=== PATIENT | female | born 1985 | race Caucasian/White ===

== ENCOUNTER 2022-07-03 07:41 | Inpatient (IN) ==
[2022-07-03] MEDS ORDERED: OXYTOCIN 30 UNITS/500 ML BAG IV PRN ×2 (09:11)
[2022-07-03] MEDS ORDERED: LIDOCAINE 1% LOCAL 20 ML VIAL INFIL PRN (09:11)
--- NOTE | 2022-07-03 09:19 | History & Physical Report ---
Date of Service July 03, 2022 Assessment & Plan (1) Encounter for induction of labor: (2) Supervision of elderly primigravida: Plan admit, iv, labs. start pitocin. arom when regular pattern. fhts categ 1. Admission and Anticipated Discharge Date Admission Date: July 03, 2022 History of Present Illness Chief Complaint: planned postdates induction Primary Care Provider: Sebastian Christy, DO 37yo at 41wks ega presents to L&D for planned induction. Had bah ripening balloon placed last pm, fell out at home. Had some bleeding, did not persist. No ctx. +FM. PNC c/b 1. AMA PNL rh pos, ri, gbs neg OBH: g1 GYNH: nl paps no stds Allergies Allergy/AdvReac Type Severity Reaction Status Date / Time No Known Allergies Allergy Verified 07/02/22 19:17 Home Medications Medication Instructions Recorded Confirmed Type prenat.vits,ivet,oad-snry-tgkez 1 tab PO DAILY 11/15/21 07/03/22 History Patient History Medical History (Updated 07/03/22 @ 09:19 by Gloria Booth MD, FACOG) Fibroids Normal colonoscopy Wears hearing aid b/l hearing aids Surgical History (Updated 07/03/22 @ 08:01 by Barbra Pandey RN) H/O right wrist surgery Bone graft from hip [place] teeth extracted Family History (Updated 07/03/22 @ 08:01 by Barbra Pandey RN) Other No known health problems Social History (Updated 07/03/22 @ 08:02 by Barbra Pandey RN) Smoking Status: Never smoker Hx Alcohol Use: No Hx Substance Use: No Preferred Language: Nepali Communication Ability: Effective 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 Beliefs That Will Affect Care: None marital status: marital status details: Brady (38) [phone] Current Living Situation: Spouse Current Living Situation Comment: lives with spouse dogs, cats, spouse to change litter current occupational status: employed current occupation: [employer] Other Information That Helps Us Care for You: No Feels Safe at Home: Yes Safety Concerns: Feels Safe At This Time Assistive Devices: None Review of Systems as per Subjective / HPI Physical Exam Constitutional: WD/WN, vitals as above Respiratory: normal respiratory effort, lungs clear to auscultation Cardiovascular: Rate/Rhythm: regular rate and regular rhythm Gastrointestinal (Abdomen): soft gravid nt efw 8-9# Musculoskeletal: no edema nontender calves Neurologic: grossly normal Psychiatric: A+Ox3, euthymic affect Genitourinary: Manual OB Exam: + cervical dilation 3 cm, + cervical effacement (long) and + station -2 OB Exam Monitor Tracing: + external FHT monitor used, + external uterine monitor used (irreg), + category I and + normal FHT variability Results & Data ([facility]) Vital Signs (Past 12 Hours) Vital Signs Temp Pulse Resp BP 07/03/22 08:03 99.5 F 18 07/03/22 07:57 92 H 131/64 Coding Level of Care Code None Diagnoses Encounter for induction of labor Z34.90 Supervision of elderly primigravida O09.519
[2022-07-03] MEDS: LACTATED RINGER'S 1,000 ML IV PRN ×4 (09:23→21:03)
[2022-07-03 10:04] LABS: Hematocrit (blood only) 37.9 % (34.1-44.9); Hemoglobin 13.2 g/dl (12.0-16.0); Mean Corpuscular Hgb Conc 34.8 g/dL (32.0-36.0); Mean Corpuscular Volume 94.8 fL (80.0-100.0); Platelet Count 171 K/uL (130-400); RDW Coefficient of Variation 12.2 % (11.5-14.5); RDW Standard Deviation 42.4 fL (36.4-46.3); White Blood Count 7.49 K/ul (4.8-10.8)
--- NOTE | 2022-07-03 15:21 | Labor Progress Brief Note ---
Date of Service July 03, 2022 Subjective not feeling ctx. Assessment & Plan (1) Encounter for induction of labor: (2) Supervision of elderly primigravida: Plan some cx change. will see how arom helps labor pattern. fhts categ 1. Admission and Anticipated Discharge Date Admission Date: July 03, 2022 Physical Exam Constitutional: WD/WN, vitals as above Genitourinary: Manual OB Exam: + cervical dilation 3 cm, + cervical effacement 50%, + station -2 and + amniotic fluid (AROM) clear OB Exam Monitor Tracing: + external FHT monitor used, + external uterine monitor used (q2-3. pit at 7), + category I and + normal FHT variability Results & Data ([facility]) Vital Signs (Past 12 Hours) Vital Signs Temp Pulse Resp BP 07/03/22 08:03 99.5 F 18 07/03/22 15:11 77 146/93 H 07/03/22 13:55 83 139/90 07/03/22 13:54 90 171/97 H 07/03/22 12:47 86 20 145/90 H 07/03/22 11:48 98.2 F 82 20 130/78 07/03/22 11:05 85 20 123/85 07/03/22 10:01 83 20 125/74 07/03/22 09:26 93 H 20 127/82 07/03/22 07:57 92 H 131/64 Coding Level of Care Code None Diagnoses Encounter for induction of labor Z34.90 Supervision of elderly primigravida O09.519
[2022-07-03] MEDS ORDERED: ePHEDrine sulfate 50 MG/ML AMP ONE (15:57)
[2022-07-03] MEDS ORDERED: fentaNYL 2MCG/ML ROPIVACAINE 1.25MG/ML 100 ML BAG EPI ONE (15:58)
[2022-07-03] MEDS ORDERED: BUPIVACAINE 0.25% 30 ML VIAL ONE (15:58)
[2022-07-03] MEDS ORDERED: SODIUM CHLORIDE 0.9% INJ 10 ML VIAL ONE (15:58)
[2022-07-03] MEDS ORDERED: fentaNYL citrate 100 MCG/2 ML VIAL ONE ×2 (15:58→22:26)
[2022-07-03] MEDS ORDERED: LIDOCAINE 2%/EPINEPHRINE 1:200,000 20 ML SDV ONE (15:58)
[2022-07-03] MEDS ORDERED: NALOXONE HCL 0.4 MG/1 ML VIAL/CARP IV PRN (16:07)
[2022-07-03] MEDS ORDERED: ePHEDrine sulfate 50 MG/ML AMP IV PRN (16:07)
[2022-07-03] MEDS ORDERED: NALBUPHINE HCL INJ 10 MG/ML AMP IV PRN (16:07)
[2022-07-03] MEDS ORDERED: diphenhydrAMINE 50 MG/ML VIAL IV PRN (16:07)
[2022-07-03] MEDS ORDERED: NALOXONE HCL 1 MG in SODIUM CHLORIDE 0.9% 1000ML 1,000 ML IV PRN (16:07)
[2022-07-03 16:08] LABS: Albumin Globulin Ratio 1.3 (0.9-2); Albumin Level 3.4 gm/dl (3.4-5.0); BUN Creatinine Ratio 15.7 (10-20); Bilirubin,Total 0.5 mg/dl (0.2-1.0); Calcium 9.4 mg/dl (8.5-10.1); Creatinine Clr Calc Pharmacy 211.6 ml/min; Est GFR (African American) 144.4 ml/min; Est GFR (Non-African American) 124.6 ml/min; Globulin 2.7 gm/dl (2.5-4.0); Potassium 4.1 mmol/L (3.5-5.1); Total Protein 6.1 gm/dl (6.0-8.3)
--- NOTE | 2022-07-03 16:11 | Anesthesiology Consultation ---
Date of Service July 03, 2022 Assessment & Plan ASA ASA2 Proposed Anesthesia Anesthesia Type: General Risk / Benefits Reviewed With: PT / POA / Parent / Guardian, Accepts Plan and Informed Consent Obtained History Height/Weight Height: 5 ft 9 in Weight: 118.388 kg Allergies Allergy/AdvReac Type Severity Reaction Status Date / Time No Known Allergies Allergy Verified 07/02/22 19:17 Medications Home Medications Medication Instructions Recorded Confirmed Last Taken prenat.vits,ivet,ytn-euhf-fdlht 1 tab PO DAILY 11/15/21 07/03/22 07/02/22 Active Medications Generic Name Dose Route Start Last Admin Trade Name Freq PRN Reason Stop Dose Admin Oxytocin 30 units in 500 mls @ 7 mls/hr 07/03/22 09:11 07/03/22 11:05 Pitocin IV 07/05/22 09:10 0.42 units/hr .Q24H PRN 7 mls/hr Labor Induction/Augmentation Titration Protocol 0.42 UNITS/HR Lactated Ringer's 1,000 mls @ 125 mls/hr 07/03/22 09:11 07/03/22 16:53 Lr IV 07/05/22 09:10 999 mls/hr .Q8H PRN Administration L&D Protocol Protocol Past Medical History Medical History Fibroids Normal colonoscopy Wears hearing aid b/l hearing aids Exercise / Class Metabolic Activity II 4-5 Yardwork/Stairs/Walk up hill Past Family History Family History Other No known health problems Past Surgical History Surgical History H/O right wrist surgery Bone graft from hip [place] teeth extracted Past Anesthesia History No Hx of Anesthesia Complications and No Family Hx of Anesthesia Complications History of PONV No Hx of PONV and No Hx of Motion Sickness Social History Smoking Status: Never smoker Hx Alcohol Use: No Hx Substance Use: No Review of Systems denies fever/cough/ colds/ chest pain/ SOB/ ARAMIS denies ARAMIS Physical Exam Vital Signs Last Vital Signs Temp 36.7 C 07/03/22 16:52 Pulse 77 07/03/22 17:14 Resp 20 07/03/22 17:03 BP 134/71 07/03/22 17:14 Pulse Ox 95 07/03/22 17:13 ENMT Mouth: no TMJ abnormality and no dentition abnormality Thyromental Distance: > or= 3.5 Finger Breadths Mallampati Class: II Neck neck extension not limited Respiratory normal respiratory effort; no respiratory distress Auscultation: lungs clear to auscultation bilaterally Cardiovascular Rate/Rhythm: regular rate and regular rhythm Neurologic moves all extremities Psychiatric Orientation: alert and oriented x 3 Testing Laboratory Results 07/03/22 09:52 07/03/22 15:36 Blood Type O Positive 07/03/22 09:52 Antibody Screen NEGATIVE 07/03/22 09:52
--- NOTE | 2022-07-03 19:04 | Labor Progress Brief Note ---
Date of Service July 03, 2022 Subjective pt comfortable with epidural Assessment & Plan (1) Encounter for induction of labor: (2) Supervision of elderly primigravida: Plan c/w pitocin. fhts categ 1 but may need to evaluate more precisely with internal monitors. Admission and Anticipated Discharge Date Admission Date: July 03, 2022 Physical Exam Constitutional: WD/WN, vitals as above Genitourinary: Manual OB Exam: + cervical dilation 3 cm, + cervical effacement 80% and + station -1 OB Exam Monitor Tracing: + external FHT monitor used, + external uterine monitor used (q2-4), + category I (occas early decels vs. variables) and + normal FHT variability Results & Data ([facility]) Vital Signs (Past 12 Hours) Vital Signs Temp Pulse Resp BP Pulse Ox 07/03/22 08:03 99.5 F 18 07/03/22 18:58 80 99 07/03/22 18:55 89 133/75 07/03/22 18:53 108 H 99 07/03/22 18:48 69 98 07/03/22 18:43 64 99 07/03/22 18:39 70 127/59 L 07/03/22 18:38 74 98 07/03/22 18:33 78 99 07/03/22 18:30 18 07/03/22 18:30 97.9 F 18 07/03/22 18:28 93 H 98 07/03/22 18:23 81 100 07/03/22 18:18 83 98 07/03/22 18:13 74 100 07/03/22 18:10 72 120/66 07/03/22 18:08 75 100 07/03/22 18:03 78 100 07/03/22 17:58 71 100 07/03/22 17:53 83 100 07/03/22 17:50 85 129/73 07/03/22 17:48 80 99 07/03/22 17:43 84 100 07/03/22 17:44 68 127/68 07/03/22 17:38 90 100 07/03/22 17:39 88 124/61 07/03/22 17:35 80 134/69 07/03/22 17:33 91 H 100 07/03/22 17:30 88 129/65 07/03/22 17:28 93 H 99 07/03/22 17:25 82 125/67 07/03/22 17:23 79 99 07/03/22 17:19 80 134/66 07/03/22 17:18 74 96 07/03/22 17:13 76 95 07/03/22 17:14 77 134/71 07/03/22 17:08 93 H 99 07/03/22 17:07 94 H 134/69 07/03/22 17:05 97 H 101/55 L 07/03/22 17:03 96 H 20 120/68 98 07/03/22 17:01 88 131/75 07/03/22 16:59 98 H 20 129/76 07/03/22 16:58 105 H 98 07/03/22 16:57 99 H 20 124/73 07/03/22 16:55 104 H 121/69 07/03/22 16:52 20 07/03/22 16:52 98.1 F 20 07/03/22 16:53 93 H 20 122/64 97 07/03/22 16:51 82 18 116/60 07/03/22 16:49 111 H 93 07/03/22 16:50 98 H 122/57 L 07/03/22 16:48 86 95 07/03/22 16:47 69 18 84/47 L 07/03/22 16:45 90 80/44 L 07/03/22 16:43 97 07/03/22 16:43 91 H 07/03/22 16:43 93 H 18 95/52 L 07/03/22 16:41 90 113/58 L 07/03/22 16:38 102 H 98 07/03/22 16:39 95 H 18 126/61 07/03/22 16:37 90 18 127/60 07/03/22 16:36 90 128/60 07/03/22 16:33 96 H 18 145/101 H 98 07/03/22 16:31 95 H 145/98 H 07/03/22 16:28 102 H 98 07/03/22 16:24 115 H 94 07/03/22 16:23 104 H 98 07/03/22 16:19 85 94 07/03/22 16:18 82 98 07/03/22 16:13 119 H 97 07/03/22 16:11 114 H 94 07/03/22 16:08 90 95 07/03/22 16:06 89 92 07/03/22 16:03 84 96 07/03/22 15:58 89 98 07/03/22 15:53 84 100 07/03/22 15:54 83 18 146/91 H 07/03/22 15:11 77 146/93 H 07/03/22 13:55 83 139/90 07/03/22 13:54 90 171/97 H 07/03/22 12:47 86 20 145/90 H 07/03/22 11:48 98.2 F 82 20 130/78 07/03/22 11:05 85 20 123/85 07/03/22 10:01 83 20 125/74 07/03/22 09:26 93 H 20 127/82 07/03/22 07:57 92 H 131/64 Coding Level of Care Code None Diagnoses Encounter for induction of labor Z34.90 Supervision of elderly primigravida O09.519
--- NOTE | 2022-07-03 19:27 | Labor Progress Brief Note ---
Date of Service July 03, 2022 Subjective coming out to evaluate pt due to decels and nurse notes that about 15min prior bright red blood and fluid. pt comfortable. Assessment & Plan (1) Encounter for induction of labor: (2) Supervision of elderly primigravida: Plan some cx change but fhts concerning for ? lates, iupc and fse placed, pit at 9, i am more concerned about the bright red bleeding as well and concern for abruption. reviewed all with patient and partner. addendum: pit off due to late decels. will allow in utero resuscitation with position change, bolus and monitor bleeding to reevaluate. Admission and Anticipated Discharge Date Admission Date: July 03, 2022 Physical Exam Constitutional: WD/WN, vitals as above Genitourinary: Manual OB Exam: + cervical dilation 4 cm, + cervical effacement 80% and + station -1 OB Exam Monitor Tracing: + external FHT monitor used, + external uterine monitor used (q2-4 pit at 9 ), + category II, + category III and + normal FHT variability (+scalp stim response) bright red blood and clot on chux under bottom and trickling of blood. ?150cc Results & Data ([facility]) Vital Signs (Past 12 Hours) Vital Signs Temp Pulse Resp BP Pulse Ox 07/03/22 08:03 99.5 F 18 07/03/22 19:18 108 H 100 07/03/22 19:13 111 H 98 07/03/22 19:08 95 H 100 07/03/22 19:09 103 H 131/84 07/03/22 19:03 76 100 07/03/22 18:58 80 99 07/03/22 18:55 89 133/75 07/03/22 18:53 108 H 99 07/03/22 18:48 69 98 07/03/22 18:43 64 99 07/03/22 18:39 70 127/59 L 07/03/22 18:38 74 98 07/03/22 18:33 78 99 07/03/22 18:30 18 07/03/22 18:30 97.9 F 18 07/03/22 18:28 93 H 98 07/03/22 18:23 81 100 07/03/22 18:18 83 98 07/03/22 18:13 74 100 07/03/22 18:10 72 120/66 07/03/22 18:08 75 100 07/03/22 18:03 78 100 07/03/22 17:58 71 100 07/03/22 17:53 83 100 07/03/22 17:50 85 129/73 07/03/22 17:48 80 99 07/03/22 17:43 84 100 07/03/22 17:44 68 127/68 07/03/22 17:38 90 100 07/03/22 17:39 88 124/61 07/03/22 17:35 80 134/69 07/03/22 17:33 91 H 100 07/03/22 17:30 88 129/65 07/03/22 17:28 93 H 99 07/03/22 17:25 82 125/67 07/03/22 17:23 79 99 07/03/22 17:19 80 134/66 07/03/22 17:18 74 96 07/03/22 17:13 76 95 07/03/22 17:14 77 134/71 07/03/22 17:08 93 H 99 07/03/22 17:07 94 H 134/69 07/03/22 17:05 97 H 101/55 L 07/03/22 17:03 96 H 20 120/68 98 07/03/22 17:01 88 131/75 07/03/22 16:59 98 H 20 129/76 07/03/22 16:58 105 H 98 07/03/22 16:57 99 H 20 124/73 07/03/22 16:55 104 H 121/69 07/03/22 16:52 20 07/03/22 16:52 98.1 F 20 07/03/22 16:53 93 H 20 122/64 97 07/03/22 16:51 82 18 116/60 07/03/22 16:49 111 H 93 07/03/22 16:50 98 H 122/57 L 07/03/22 16:48 86 95 07/03/22 16:47 69 18 84/47 L 07/03/22 16:45 90 80/44 L 07/03/22 16:43 97 07/03/22 16:43 91 H 07/03/22 16:43 93 H 18 95/52 L 07/03/22 16:41 90 113/58 L 07/03/22 16:38 102 H 98 07/03/22 16:39 95 H 18 126/61 07/03/22 16:37 90 18 127/60 07/03/22 16:36 90 128/60 07/03/22 16:33 96 H 18 145/101 H 98 07/03/22 16:31 95 H 145/98 H 07/03/22 16:28 102 H 98 07/03/22 16:24 115 H 94 07/03/22 16:23 104 H 98 07/03/22 16:19 85 94 07/03/22 16:18 82 98 07/03/22 16:13 119 H 97 07/03/22 16:11 114 H 94 07/03/22 16:08 90 95 07/03/22 16:06 89 92 07/03/22 16:03 84 96 07/03/22 15:58 89 98 07/03/22 15:53 84 100 07/03/22 15:54 83 18 146/91 H 07/03/22 15:11 77 146/93 H 07/03/22 13:55 83 139/90 07/03/22 13:54 90 171/97 H 07/03/22 12:47 86 20 145/90 H 07/03/22 11:48 98.2 F 82 20 130/78 07/03/22 11:05 85 20 123/85 07/03/22 10:01 83 20 125/74 07/03/22 09:26 93 H 20 127/82 07/03/22 07:57 92 H 131/64 Coding Level of Care Code None Diagnoses Encounter for induction of labor Z34.90 Supervision of elderly primigravida O09.519
--- NOTE | 2022-07-03 20:54 | Communication Note ---
Date of Service: July 03, 2022 strip review. fhts categ 1, pit infusing at 3 no further bleeding. cont current care.
--- NOTE | 2022-07-03 22:35 | Communication Note ---
Date of Service: July 03, 2022 pt c/o pain on right side towards back. I pulled the catheter back 1 cm. bolused 100 mcg fentanyl, 3cc 2% lidocaine with epi, 3 cc 0.5% ropivicaine. pt feels better
[2022-07-03] MEDS: fentaNYL 2MCG/ML ROPIVACAINE 1.25MG/ML 100 ML BAG EPI PRN (23:15)
[2022-07-03] MEDS ORDERED: NURSING L&D Epidural Breakthrough Pain Update ONE (23:21)
[2022-07-04] MEDS: LACTATED RINGER'S 1,000 ML IV PRN ×3 (01:03→10:10)
[2022-07-04] MEDS ORDERED: fentaNYL citrate 100 MCG/2 ML VIAL ONE (03:00)
--- NOTE | 2022-07-04 03:12 | Communication Note ---
Date of Service: July 04, 2022 pt again c/o pain on right side/back. left side is numb. Bolus 100 mcg fentanyl, 3 cc 0.5% ropivicaine and 2 cc lidocaine. pain improved.
[2022-07-04] MEDS: fentaNYL 2MCG/ML ROPIVACAINE 1.25MG/ML 100 ML BAG EPI PRN ×2 (05:04→10:06)
--- NOTE | 2022-07-04 07:39 | Labor Progress Brief Note ---
Date of Service July 04, 2022 Subjective pt seen at about 530 am this is late entry. sitting upright and sleeping. no pain issues but recent rebolus. fhts with late decels and so pit off, communicating with nursing. Assessment & Plan (1) Encounter for induction of labor: (2) Supervision of elderly primigravida: Plan discussed with patient now that fhts improved, can opt to restart pitocin. even when having on and off adeq mvus, still making cx change however station still - 1. this will be 3rd time we have restarted pit and her epidural has required now 2 re-doses (she says does not seem to work well on right side). she is comfortable restarting pitocin. fhts categ 1. will start at 1/2 of past dose and increase more incrementally. pt aware of plan and that Dr. Edwards taking over later this am. Admission and Anticipated Discharge Date Admission Date: July 03, 2022 Physical Exam Constitutional: WD/WN, vitals as above Genitourinary: Manual OB Exam: + cervical dilation 7 cm, + cervical effacement 90% and + station -1 OB Exam Monitor Tracing: + external FHT monitor used, + intra-uterine pressure catheter used (q6min, mvu inadeq, pit off), + category I and + normal FHT variability fhts now categ 1. Results & Data ([facility]) Vital Signs (Past 12 Hours) Vital Signs Temp Pulse Resp BP Pulse Ox 07/04/22 07:32 92 H 96 07/04/22 07:26 102 H 150/65 H 07/04/22 07:23 85 97 07/04/22 07:18 102 H 97 07/04/22 07:15 78 153/73 H 07/04/22 07:10 18 07/04/22 07:10 98.1 F 18 07/04/22 07:13 99 H 95 07/04/22 07:11 93 07/04/22 07:11 80 07/04/22 07:11 86 186/103 H 07/04/22 07:08 87 95 07/04/22 07:04 71 91 07/04/22 07:03 92 H 98 07/04/22 06:58 105 H 97 07/04/22 06:57 78 159/98 H 07/04/22 06:53 83 92 07/04/22 06:48 116 H 97 07/04/22 06:47 91 H 94 07/04/22 06:43 95 H 97 07/04/22 06:42 80 183/93 H 07/04/22 06:38 99 H 97 07/04/22 06:39 86 94 07/04/22 06:33 97 H 97 07/04/22 06:34 92 H 92 07/04/22 06:28 83 95 07/04/22 06:27 94 07/04/22 06:27 87 07/04/22 06:27 80 145/89 H 07/04/22 06:23 96 H 96 07/04/22 06:22 115 H 92 07/04/22 06:17 18 07/04/22 06:17 18 07/04/22 06:18 83 95 07/04/22 06:16 89 91 07/04/22 06:13 100 H 96 07/04/22 06:11 96 H 159/96 H 07/04/22 06:08 94 H 96 07/04/22 06:03 92 H 95 07/04/22 05:58 80 96 07/04/22 05:55 81 153/76 H 07/04/22 05:53 85 97 07/04/22 05:48 88 95 07/04/22 05:43 87 96 07/04/22 05:41 86 159/84 H 07/04/22 05:38 92 H 96 07/04/22 05:31 18 07/04/22 05:31 97.9 F 18 07/04/22 05:33 85 96 07/04/22 05:28 104 H 98 07/04/22 05:26 100 H 162/90 H 07/04/22 05:23 123 H 99 07/04/22 05:18 81 94 07/04/22 05:17 82 94 07/04/22 05:13 77 96 07/04/22 05:12 83 94 07/04/22 05:10 86 147/89 H 07/04/22 05:08 78 96 07/04/22 05:03 80 96 07/04/22 04:58 76 96 07/04/22 04:57 82 159/91 H 07/04/22 04:53 79 96 07/04/22 04:52 82 94 07/04/22 04:48 87 95 07/04/22 04:43 81 95 07/04/22 04:42 85 138/79 07/04/22 04:38 78 95 07/04/22 04:33 97 H 94 07/04/22 04:28 77 96 07/04/22 04:27 83 159/75 H 07/04/22 04:23 91 H 96 07/04/22 04:18 90 97 07/04/22 04:13 85 146/77 H 97 07/04/22 04:12 101 H 154/105 H 07/04/22 04:08 102 H 98 07/04/22 04:03 85 95 07/04/22 03:58 111 H 97 07/04/22 03:56 114 H 198/104 H 07/04/22 03:53 104 H 97 07/04/22 03:48 82 95 07/04/22 03:43 85 96 07/04/22 03:41 95 H 134/88 07/04/22 03:38 110 H 97 07/04/22 03:37 104 H 94 07/04/22 03:33 92 H 95 07/04/22 03:28 98 H 95 07/04/22 03:26 84 136/77 94 07/04/22 03:23 89 95 07/04/22 03:22 79 156/73 H 07/04/22 03:18 91 H 94 07/04/22 03:19 101 H 94 07/04/22 03:10 20 07/04/22 03:10 98.8 F 20 07/04/22 03:13 90 96 07/04/22 03:11 104 H 182/87 H 07/04/22 03:08 101 H 96 07/04/22 03:03 100 H 96 07/04/22 02:58 90 07/04/22 02:58 94 H 07/04/22 02:58 84 92 07/04/22 02:55 96 H 171/83 H 07/04/22 02:53 102 H 95 07/04/22 02:51 80 90 07/04/22 02:48 104 H 98 07/04/22 02:43 98 H 95 07/04/22 02:42 89 07/04/22 02:42 87 179/89 H 90 07/04/22 02:38 100 H 98 07/04/22 02:34 89 91 07/04/22 02:33 93 H 96 07/04/22 02:28 97 H 95 07/04/22 02:29 84 92 07/04/22 02:26 83 185/87 H 07/04/22 02:24 85 93 07/04/22 02:23 18 07/04/22 02:23 98.8 F 93 H 18 96 07/04/22 02:18 94 H 97 07/04/22 02:19 89 92 07/04/22 02:13 97 H 95 07/04/22 02:10 93 H 146/87 H 07/04/22 02:08 102 H 97 07/04/22 02:07 91 H 92 07/04/22 02:03 89 96 07/04/22 02:01 86 93 07/04/22 01:58 92 H 94 07/04/22 01:55 91 H 152/86 H 94 07/04/22 01:53 99 H 96 07/04/22 01:48 86 95 07/04/22 01:43 90 96 07/04/22 01:40 96 H 150/90 H 07/04/22 01:38 109 H 97 07/04/22 01:33 92 H 96 07/04/22 01:28 89 97 07/04/22 01:27 83 130/69 07/04/22 01:23 95 H 97 07/04/22 01:18 87 97 07/04/22 01:15 82 94 07/04/22 01:13 84 96 07/04/22 01:10 83 127/72 07/04/22 01:08 83 96 07/04/22 01:03 88 96 07/04/22 00:58 78 97 07/04/22 00:57 86 132/78 07/04/22 00:53 88 97 07/04/22 00:48 83 96 07/04/22 00:43 96 H 97 07/04/22 00:40 93 H 131/78 07/04/22 00:38 102 H 98 07/04/22 00:33 89 97 07/04/22 00:28 99.9 F H 96 H 18 98 07/04/22 00:23 107 H 96 07/04/22 00:18 91 H 97 07/04/22 00:13 85 96 07/04/22 00:10 91 H 126/65 07/04/22 00:08 86 95 07/04/22 00:03 87 96 07/03/22 23:58 87 96 07/03/22 23:55 86 116/63 07/03/22 23:53 85 98 07/03/22 23:48 88 96 07/03/22 23:46 91 H 94 07/03/22 23:43 99 H 98 07/03/22 23:40 84 125/69 07/03/22 23:38 86 95 07/03/22 23:37 83 94 07/03/22 23:33 90 95 07/03/22 23:30 81 94 07/03/22 23:28 85 94 07/03/22 23:25 88 128/73 07/03/22 23:23 94 07/03/22 23:23 90 07/03/22 23:23 85 94 07/03/22 23:18 91 H 96 07/03/22 23:17 85 94 07/03/22 23:13 84 95 07/03/22 23:10 86 93 07/03/22 23:09 94 H 128/75 07/03/22 23:08 106 H 98 07/03/22 23:07 93 H 128/70 07/03/22 23:05 93 H 121/69 07/03/22 23:04 85 94 07/03/22 23:03 80 129/72 95 07/03/22 23:01 85 128/70 07/03/22 23:00 90 119/67 07/03/22 22:58 96 07/03/22 22:58 93 H 07/03/22 22:58 90 113/59 L 07/03/22 22:55 83 131/65 07/03/22 22:53 94 H 95 07/03/22 22:54 93 H 124/62 07/03/22 22:52 99 H 93 07/03/22 22:51 111 H 131/79 07/03/22 22:49 111 H 130/69 07/03/22 22:48 99 H 94 07/03/22 22:47 94 H 127/68 07/03/22 22:46 96 H 93 07/03/22 22:45 90 132/72 07/03/22 22:43 100 H 136/74 96 07/03/22 22:41 93 H 136/73 07/03/22 22:39 98 H 140/78 07/03/22 22:38 98 H 96 07/03/22 22:37 92 H 07/03/22 22:37 90 134/75 92 07/03/22 22:35 90 124/71 07/03/22 22:33 88 97 07/03/22 22:34 85 127/73 07/03/22 22:32 113 H 94 07/03/22 22:31 99 H 131/85 07/03/22 22:28 93 H 95 07/03/22 22:26 90 93 07/03/22 22:23 90 97 07/03/22 22:24 82 141/90 H 07/03/22 22:21 91 H 92 07/03/22 22:18 102 H 96 07/03/22 22:15 91 H 94 07/03/22 22:13 94 H 97 07/03/22 22:11 20 07/03/22 22:11 98.8 F 20 07/03/22 22:09 95 H 145/92 H 07/03/22 22:08 99 H 96 07/03/22 22:04 86 91 07/03/22 22:03 98 H 98 07/03/22 21:58 96 07/03/22 21:58 94 H 07/03/22 21:58 88 93 07/03/22 21:53 89 96 07/03/22 21:54 92 H 139/86 07/03/22 21:52 95 H 94 07/03/22 21:48 105 H 99 07/03/22 21:29 18 07/03/22 21:29 97.9 F 18 07/03/22 21:43 96 H 97 07/03/22 21:39 93 H 131/78 07/03/22 21:38 91 H 97 07/03/22 21:33 100 H 97 07/03/22 21:28 85 97 07/03/22 21:25 86 131/78 07/03/22 21:23 95 H 98 07/03/22 21:18 96 H 98 07/03/22 21:00 18 07/03/22 21:00 18 07/03/22 21:13 97 H 99 07/03/22 21:10 83 133/75 07/03/22 21:08 88 97 07/03/22 21:03 98 H 98 07/03/22 20:58 88 96 07/03/22 20:53 90 97 07/03/22 20:54 90 129/73 07/03/22 20:48 79 97 07/03/22 20:43 85 96 07/03/22 20:42 92 H 93 07/03/22 20:38 90 96 07/03/22 20:39 90 127/72 07/03/22 20:33 82 96 07/03/22 20:28 84 96 07/03/22 20:23 85 97 07/03/22 20:24 80 122/68 07/03/22 20:18 82 97 07/03/22 20:13 94 H 98 07/03/22 20:08 87 99 07/03/22 20:09 82 121/65 07/03/22 20:03 88 96 07/03/22 19:40 98.4 F 07/03/22 19:58 96 H 99 07/03/22 19:53 87 95 07/03/22 19:54 74 135/68 07/03/22 19:48 81 96 07/03/22 19:43 79 98 07/03/22 19:38 85 99 07/03/22 19:39 80 127/74 Coding Level of Care Code None Diagnoses Encounter for induction of labor Z34.90 Supervision of elderly primigravida O09.519
--- NOTE | 2022-07-04 09:04 | Labor Progress Brief Note ---
Date of Service July 04, 2022 Subjective Met with patient in room 424 after receiving detailed signout from Dr. Booth. 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 I removed the remaining parts of the prior FSE and placed a new one which was then activated. I noted significant labial and perineal edema, bloody show, and my cervix exam is currently 6/100/-2 with the very leading edge of the cervix being 100% eff aced however the remainder of the palpable cervical ring quite puffy just behind that sharp edge. This may account for the RN's exam a short time ago during which she believed the exam was 8cm. Discussed the course of labor so far with Nanci and her . They're having a boy, either Joe or Higinio, not sure yet on the name. She was of course hoping for vaginal delivery but wants a healthy delivery above all. We discussed that while there has been progress, and no emergency that has required a change of plans, as time goes on the risks of complications like infection and hemorrhage also increase - so there are diminishing rewards to allowing very slow labor, after a point. We talked about the positive signs: dilation, reassuring heart tones when contractions are not close together, and patient's energy and motivation still good. We talked about less-positive signs: no descent of the presenting part, significant edema of labia and also cervix, and poor tolerance of augmentation of labor. While it's not possible to know exactly how the process will end, she currently has some of the best pain relief she's had so far; thus I recommended we go ahead and try to use pitocin now to move this baby downward, and try to demonstrate either some significant forward progress towards a vaginal delivery, or test the baby's ability to tolerate the necessary labor forces in the process, so that we can proceed to a if that's ultimately what will be needed. She and the FOB had an opportunity to ask questions, voice concerns, and discuss the plan. They are in agreement with using pitocin in the usual up-by-two pattern, and close monitoring using FSE. Assessment & Plan (1) Encounter for induction of labor: Plan: As above will continue to induce and look for progress towards , but pt aware there are concerns that we may need to change route of depending on findings in the next few hours. Admission and Anticipated Discharge Date Admission Date: July 03, 2022 Physical Exam Genitourinary: FHT Cat 1 [place] Q4-6m Cvx 6/100/-2 as above, with a very thin inner rim and edema of outer portion of cervical ring, mimicking an 8cm exam if you don't feel the thin inner portion of the cervix. LOF clear with bloody show. Results & Data ([facility]) Vital Signs (Past 12 Hours) Vital Signs Temp Pulse Resp BP Pulse Ox 07/04/22 08:47 73 96 07/04/22 08:42 79 96 07/04/22 08:41 75 134/69 07/04/22 08:39 84 94 07/04/22 08:37 78 96 07/04/22 08:32 87 97 07/04/22 08:27 104 H 99 07/04/22 08:26 96 H 138/78 07/04/22 08:22 96 H 96 07/04/22 08:17 85 97 07/04/22 08:12 85 96 07/04/22 08:11 90 145/74 H 07/04/22 08:09 93 H 94 07/04/22 08:07 78 96 07/04/22 08:02 96 07/04/22 08:02 75 07/04/22 08:02 78 94 07/04/22 07:57 81 97 07/04/22 07:56 75 134/63 07/04/22 07:52 81 96 07/04/22 07:50 78 94 07/04/22 07:47 78 96 07/04/22 07:42 77 95 07/04/22 07:40 77 133/65 07/04/22 07:37 90 97 07/04/22 07:32 92 H 96 07/04/22 07:26 102 H 150/65 H 07/04/22 07:23 85 97 07/04/22 07:18 102 H 97 07/04/22 07:15 78 153/73 H 07/04/22 07:10 18 07/04/22 07:10 98.1 F 18 07/04/22 07:13 99 H 95 07/04/22 07:11 93 07/04/22 07:11 80 07/04/22 07:11 86 186/103 H 07/04/22 07:08 87 95 07/04/22 07:04 71 91 07/04/22 07:03 92 H 98 07/04/22 06:58 105 H 97 07/04/22 06:57 78 159/98 H 07/04/22 06:53 83 92 07/04/22 06:48 116 H 97 07/04/22 06:47 91 H 94 07/04/22 06:43 95 H 97 07/04/22 06:42 80 183/93 H 07/04/22 06:38 99 H 97 07/04/22 06:39 86 94 07/04/22 06:33 97 H 97 07/04/22 06:34 92 H 92 07/04/22 06:28 83 95 07/04/22 06:27 94 07/04/22 06:27 87 07/04/22 06:27 80 145/89 H 07/04/22 06:23 96 H 96 07/04/22 06:22 115 H 92 07/04/22 06:17 18 07/04/22 06:17 18 07/04/22 06:18 83 95 07/04/22 06:16 89 91 07/04/22 06:13 100 H 96 07/04/22 06:11 96 H 159/96 H 07/04/22 06:08 94 H 96 07/04/22 06:03 92 H 95 07/04/22 05:58 80 96 07/04/22 05:55 81 153/76 H 07/04/22 05:53 85 97 07/04/22 05:48 88 95 07/04/22 05:43 87 96 07/04/22 05:41 86 159/84 H 07/04/22 05:38 92 H 96 07/04/22 05:31 18 07/04/22 05:31 97.9 F 18 07/04/22 05:33 85 96 07/04/22 05:28 104 H 98 07/04/22 05:26 100 H 162/90 H 07/04/22 05:23 123 H 99 07/04/22 05:18 81 94 07/04/22 05:17 82 94 07/04/22 05:13 77 96 07/04/22 05:12 83 94 07/04/22 05:10 86 147/89 H 07/04/22 05:08 78 96 07/04/22 05:03 80 96 07/04/22 04:58 76 96 07/04/22 04:57 82 159/91 H 07/04/22 04:53 79 96 07/04/22 04:52 82 94 07/04/22 04:48 87 95 07/04/22 04:43 81 95 07/04/22 04:42 85 138/79 07/04/22 04:38 78 95 07/04/22 04:33 97 H 94 07/04/22 04:28 77 96 07/04/22 04:27 83 159/75 H 07/04/22 04:23 91 H 96 07/04/22 04:18 90 97 07/04/22 04:13 85 146/77 H 97 07/04/22 04:12 101 H 154/105 H 07/04/22 04:08 102 H 98 07/04/22 04:03 85 95 07/04/22 03:58 111 H 97 07/04/22 03:56 114 H 198/104 H 07/04/22 03:53 104 H 97 07/04/22 03:48 82 95 07/04/22 03:43 85 96 07/04/22 03:41 95 H 134/88 07/04/22 03:38 110 H 97 07/04/22 03:37 104 H 94 07/04/22 03:33 92 H 95 07/04/22 03:28 98 H 95 07/04/22 03:26 84 136/77 94 07/04/22 03:23 89 95 07/04/22 03:22 79 156/73 H 07/04/22 03:18 91 H 94 07/04/22 03:19 101 H 94 07/04/22 03:10 20 07/04/22 03:10 98.8 F 20 07/04/22 03:13 90 96 07/04/22 03:11 104 H 182/87 H 07/04/22 03:08 101 H 96 07/04/22 03:03 100 H 96 07/04/22 02:58 90 07/04/22 02:58 94 H 07/04/22 02:58 84 92 07/04/22 02:55 96 H 171/83 H 07/04/22 02:53 102 H 95 07/04/22 02:51 80 90 07/04/22 02:48 104 H 98 07/04/22 02:43 98 H 95 07/04/22 02:42 89 07/04/22 02:42 87 179/89 H 90 07/04/22 02:38 100 H 98 07/04/22 02:34 89 91 07/04/22 02:33 93 H 96 07/04/22 02:28 97 H 95 07/04/22 02:29 84 92 07/04/22 02:26 83 185/87 H 07/04/22 02:24 85 93 07/04/22 02:23 18 07/04/22 02:23 98.8 F 93 H 18 96 07/04/22 02:18 94 H 97 07/04/22 02:19 89 92 07/04/22 02:13 97 H 95 07/04/22 02:10 93 H 146/87 H 07/04/22 02:08 102 H 97 07/04/22 02:07 91 H 92 07/04/22 02:03 89 96 07/04/22 02:01 86 93 07/04/22 01:58 92 H 94 07/04/22 01:55 91 H 152/86 H 94 07/04/22 01:53 99 H 96 07/04/22 01:48 86 95 07/04/22 01:43 90 96 07/04/22 01:40 96 H 150/90 H 07/04/22 01:38 109 H 97 07/04/22 01:33 92 H 96 07/04/22 01:28 89 97 07/04/22 01:27 83 130/69 07/04/22 01:23 95 H 97 07/04/22 01:18 87 97 07/04/22 01:15 82 94 07/04/22 01:13 84 96 07/04/22 01:10 83 127/72 07/04/22 01:08 83 96 07/04/22 01:03 88 96 07/04/22 00:58 78 97 07/04/22 00:57 86 132/78 07/04/22 00:53 88 97 07/04/22 00:48 83 96 07/04/22 00:43 96 H 97 07/04/22 00:40 93 H 131/78 07/04/22 00:38 102 H 98 07/04/22 00:33 89 97 07/04/22 00:28 99.9 F H 96 H 18 98 07/04/22 00:23 107 H 96 07/04/22 00:18 91 H 97 07/04/22 00:13 85 96 07/04/22 00:10 91 H 126/65 07/04/22 00:08 86 95 07/04/22 00:03 87 96 07/03/22 23:58 87 96 07/03/22 23:55 86 116/63 07/03/22 23:53 85 98 07/03/22 23:48 88 96 07/03/22 23:46 91 H 94 07/03/22 23:43 99 H 98 07/03/22 23:40 84 125/69 07/03/22 23:38 86 95 07/03/22 23:37 83 94 07/03/22 23:33 90 95 07/03/22 23:30 81 94 07/03/22 23:28 85 94 07/03/22 23:25 88 128/73 07/03/22 23:23 94 07/03/22 23:23 90 07/03/22 23:23 85 94 07/03/22 23:18 91 H 96 07/03/22 23:17 85 94 07/03/22 23:13 84 95 07/03/22 23:10 86 93 07/03/22 23:09 94 H 128/75 07/03/22 23:08 106 H 98 07/03/22 23:07 93 H 128/70 07/03/22 23:05 93 H 121/69 07/03/22 23:04 85 94 07/03/22 23:03 80 129/72 95 07/03/22 23:01 85 128/70 07/03/22 23:00 90 119/67 07/03/22 22:58 96 07/03/22 22:58 93 H 07/03/22 22:58 90 113/59 L 07/03/22 22:55 83 131/65 07/03/22 22:53 94 H 95 07/03/22 22:54 93 H 124/62 07/03/22 22:52 99 H 93 07/03/22 22:51 111 H 131/79 07/03/22 22:49 111 H 130/69 07/03/22 22:48 99 H 94 07/03/22 22:47 94 H 127/68 07/03/22 22:46 96 H 93 07/03/22 22:45 90 132/72 07/03/22 22:43 100 H 136/74 96 07/03/22 22:41 93 H 136/73 07/03/22 22:39 98 H 140/78 07/03/22 22:38 98 H 96 07/03/22 22:37 92 H 07/03/22 22:37 90 134/75 92 07/03/22 22:35 90 124/71 07/03/22 22:33 88 97 07/03/22 22:34 85 127/73 07/03/22 22:32 113 H 94 07/03/22 22:31 99 H 131/85 07/03/22 22:28 93 H 95 07/03/22 22:26 90 93 07/03/22 22:23 90 97 07/03/22 22:24 82 141/90 H 07/03/22 22:21 91 H 92 07/03/22 22:18 102 H 96 07/03/22 22:15 91 H 94 07/03/22 22:13 94 H 97 07/03/22 22:11 20 07/03/22 22:11 98.8 F 20 07/03/22 22:09 95 H 145/92 H 07/03/22 22:08 99 H 96 07/03/22 22:04 86 91 07/03/22 22:03 98 H 98 07/03/22 21:58 96 07/03/22 21:58 94 H 07/03/22 21:58 88 93 07/03/22 21:53 89 96 07/03/22 21:54 92 H 139/86 07/03/22 21:52 95 H 94 07/03/22 21:48 105 H 99 07/03/22 21:29 18 07/03/22 21:29 97.9 F 18 07/03/22 21:43 96 H 97 07/03/22 21:39 93 H 131/78 07/03/22 21:38 91 H 97 07/03/22 21:33 100 H 97 07/03/22 21:28 85 97 07/03/22 21:25 86 131/78 07/03/22 21:23 95 H 98 07/03/22 21:18 96 H 98 07/03/22 21:00 18 07/03/22 21:00 18 07/03/22 21:13 97 H 99 07/03/22 21:10 83 133/75 07/03/22 21:08 88 97 07/03/22 21:03 98 H 98 07/03/22 20:58 88 96 07/03/22 20:53 90 97 07/03/22 20:54 90 129/73 Coding Level of Care Code None Diagnoses Encounter for induction of labor Z34.90
[2022-07-04] MEDS ORDERED: MoRPHine SULFATE PF 1 MG/ML 10 ML AMP/VIAL ONE (10:38)
--- NOTE | 2022-07-04 10:42 | Labor Progress Brief Note ---
Date of Service July 04, 2022 Subjective Patient received yet another epidural bolus at 10am, and the FHT which had been Cat 1 until then began to show deep late decels. I came to the room to find her very comfortable, pit @ 18, contractions Q3min. Exam showed no change at all: 6/100/-2, with a visible increase in vulvar and perineal edema which ELIZABETH Denise also commented on noticing. Assessment & Plan (1) Failure to progress in labor: Plan: Discussed with patient and FOB that at this point there has been no interval cervical change despite significant increases in pitocin and a very nice labor pattern in her contractions. The increased labial edema suggests CPD. Meanwhile the fetus shows inability to tolerate the regional hypotension that occurs with each epidural bolus dose, which the patient is requiring with some frequency to achieve adequate comfort. While we can continue to try to achieve at least 6 hours of adequate MVU, I think she's had two good hours of MVU without any change, and there has continued to be evidence that maternal comfort and perfusion are at odds. She is feeling tired, and is agreeable to moving forward with at this point to achieve a healthy delivery without further delay. Given length of labor, maternal habitus, and a busy census on the unit at this time, will call an assisting MD from the office to help with the surgery. Patient is aware. Admission and Anticipated Discharge Date Admission Date: July 03, 2022 Results & Data ([facility]) Vital Signs (Past 12 Hours) Vital Signs Temp Pulse Resp BP Pulse Ox 07/04/22 10:32 101 H 98 07/04/22 10:27 94 H 97 07/04/22 10:25 95 H 134/75 07/04/22 10:22 76 95 07/04/22 10:17 76 97 07/04/22 10:12 81 95 07/04/22 10:11 81 135/73 07/04/22 10:07 86 95 07/04/22 10:04 86 146/72 H 07/04/22 10:02 86 94 07/04/22 10:01 87 93 07/04/22 09:57 106 H 98 07/04/22 09:58 94 H 156/100 H 07/04/22 09:56 84 144/94 H 92 07/04/22 09:52 91 H 97 07/04/22 09:50 87 92 07/04/22 09:47 86 95 07/04/22 09:44 83 93 07/04/22 09:42 97 07/04/22 09:42 92 H 07/04/22 09:42 88 171/97 H 07/04/22 09:37 96 H 97 07/04/22 09:32 94 H 98 07/04/22 09:30 82 92 07/04/22 09:27 84 95 07/04/22 09:24 16 07/04/22 09:24 98.1 F 16 07/04/22 09:25 82 152/85 H 07/04/22 09:22 90 96 07/04/22 09:21 89 93 07/04/22 09:17 97 H 97 07/04/22 09:12 89 98 07/04/22 09:13 90 144/90 H 07/04/22 09:07 90 97 07/04/22 09:02 83 96 07/04/22 08:57 73 96 07/04/22 08:55 83 140/72 07/04/22 08:52 78 96 07/04/22 08:47 73 96 07/04/22 08:42 79 96 07/04/22 08:41 75 134/69 07/04/22 08:39 84 94 07/04/22 08:37 78 96 07/04/22 08:32 87 97 07/04/22 08:27 104 H 99 07/04/22 08:26 96 H 138/78 07/04/22 08:22 96 H 96 07/04/22 08:17 85 97 07/04/22 08:12 85 96 07/04/22 08:11 90 145/74 H 07/04/22 08:09 93 H 94 07/04/22 08:07 78 96 07/04/22 08:02 96 07/04/22 08:02 75 07/04/22 08:02 78 94 07/04/22 07:57 81 97 07/04/22 07:56 75 134/63 07/04/22 07:52 81 96 07/04/22 07:50 78 94 07/04/22 07:47 78 96 07/04/22 07:42 77 95 07/04/22 07:40 77 133/65 07/04/22 07:37 90 97 07/04/22 07:32 92 H 96 07/04/22 07:26 102 H 150/65 H 07/04/22 07:23 85 97 07/04/22 07:18 102 H 97 07/04/22 07:15 78 153/73 H 07/04/22 07:10 18 07/04/22 07:10 98.1 F 18 07/04/22 07:13 99 H 95 07/04/22 07:11 93 07/04/22 07:11 80 07/04/22 07:11 86 186/103 H 07/04/22 07:08 87 95 07/04/22 07:04 71 91 07/04/22 07:03 92 H 98 07/04/22 06:58 105 H 97 07/04/22 06:57 78 159/98 H 07/04/22 06:53 83 92 07/04/22 06:48 116 H 97 07/04/22 06:47 91 H 94 07/04/22 06:43 95 H 97 07/04/22 06:42 80 183/93 H 07/04/22 06:38 99 H 97 07/04/22 06:39 86 94 07/04/22 06:33 97 H 97 07/04/22 06:34 92 H 92 07/04/22 06:28 83 95 07/04/22 06:27 94 07/04/22 06:27 87 07/04/22 06:27 80 145/89 H 07/04/22 06:23 96 H 96 07/04/22 06:22 115 H 92 07/04/22 06:17 18 07/04/22 06:17 18 07/04/22 06:18 83 95 07/04/22 06:16 89 91 07/04/22 06:13 100 H 96 07/04/22 06:11 96 H 159/96 H 07/04/22 06:08 94 H 96 07/04/22 06:03 92 H 95 07/04/22 05:58 80 96 07/04/22 05:55 81 153/76 H 07/04/22 05:53 85 97 07/04/22 05:48 88 95 07/04/22 05:43 87 96 07/04/22 05:41 86 159/84 H 07/04/22 05:38 92 H 96 07/04/22 05:31 18 07/04/22 05:31 97.9 F 18 07/04/22 05:33 85 96 07/04/22 05:28 104 H 98 07/04/22 05:26 100 H 162/90 H 07/04/22 05:23 123 H 99 07/04/22 05:18 81 94 07/04/22 05:17 82 94 07/04/22 05:13 77 96 07/04/22 05:12 83 94 07/04/22 05:10 86 147/89 H 07/04/22 05:08 78 96 07/04/22 05:03 80 96 07/04/22 04:58 76 96 07/04/22 04:57 82 159/91 H 07/04/22 04:53 79 96 07/04/22 04:52 82 94 07/04/22 04:48 87 95 07/04/22 04:43 81 95 07/04/22 04:42 85 138/79 07/04/22 04:38 78 95 07/04/22 04:33 97 H 94 07/04/22 04:28 77 96 07/04/22 04:27 83 159/75 H 07/04/22 04:23 91 H 96 07/04/22 04:18 90 97 07/04/22 04:13 85 146/77 H 97 07/04/22 04:12 101 H 154/105 H 07/04/22 04:08 102 H 98 07/04/22 04:03 85 95 07/04/22 03:58 111 H 97 07/04/22 03:56 114 H 198/104 H 07/04/22 03:53 104 H 97 07/04/22 03:48 82 95 07/04/22 03:43 85 96 07/04/22 03:41 95 H 134/88 07/04/22 03:38 110 H 97 07/04/22 03:37 104 H 94 07/04/22 03:33 92 H 95 07/04/22 03:28 98 H 95 07/04/22 03:26 84 136/77 94 07/04/22 03:23 89 95 07/04/22 03:22 79 156/73 H 07/04/22 03:18 91 H 94 07/04/22 03:19 101 H 94 07/04/22 03:10 20 07/04/22 03:10 98.8 F 20 07/04/22 03:13 90 96 07/04/22 03:11 104 H 182/87 H 07/04/22 03:08 101 H 96 07/04/22 03:03 100 H 96 07/04/22 02:58 90 07/04/22 02:58 94 H 07/04/22 02:58 84 92 07/04/22 02:55 96 H 171/83 H 07/04/22 02:53 102 H 95 07/04/22 02:51 80 90 07/04/22 02:48 104 H 98 07/04/22 02:43 98 H 95 07/04/22 02:42 89 07/04/22 02:42 87 179/89 H 90 07/04/22 02:38 100 H 98 07/04/22 02:34 89 91 07/04/22 02:33 93 H 96 07/04/22 02:28 97 H 95 07/04/22 02:29 84 92 07/04/22 02:26 83 185/87 H 07/04/22 02:24 85 93 07/04/22 02:23 18 07/04/22 02:23 98.8 F 93 H 18 96 07/04/22 02:18 94 H 97 07/04/22 02:19 89 92 07/04/22 02:13 97 H 95 07/04/22 02:10 93 H 146/87 H 07/04/22 02:08 102 H 97 07/04/22 02:07 91 H 92 07/04/22 02:03 89 96 07/04/22 02:01 86 93 07/04/22 01:58 92 H 94 07/04/22 01:55 91 H 152/86 H 94 07/04/22 01:53 99 H 96 07/04/22 01:48 86 95 07/04/22 01:43 90 96 07/04/22 01:40 96 H 150/90 H 07/04/22 01:38 109 H 97 07/04/22 01:33 92 H 96 07/04/22 01:28 89 97 07/04/22 01:27 83 130/69 07/04/22 01:23 95 H 97 07/04/22 01:18 87 97 07/04/22 01:15 82 94 07/04/22 01:13 84 96 07/04/22 01:10 83 127/72 07/04/22 01:08 83 96 07/04/22 01:03 88 96 07/04/22 00:58 78 97 07/04/22 00:57 86 132/78 07/04/22 00:53 88 97 07/04/22 00:48 83 96 07/04/22 00:43 96 H 97 07/04/22 00:40 93 H 131/78 07/04/22 00:38 102 H 98 07/04/22 00:33 89 97 07/04/22 00:28 99.9 F H 96 H 18 98 07/04/22 00:23 107 H 96 07/04/22 00:18 91 H 97 07/04/22 00:13 85 96 07/04/22 00:10 91 H 126/65 07/04/22 00:08 86 95 07/04/22 00:03 87 96 07/03/22 23:58 87 96 07/03/22 23:55 86 116/63 07/03/22 23:53 85 98 07/03/22 23:48 88 96 07/03/22 23:46 91 H 94 07/03/22 23:43 99 H 98 07/03/22 23:40 84 125/69 07/03/22 23:38 86 95 07/03/22 23:37 83 94 07/03/22 23:33 90 95 07/03/22 23:30 81 94 07/03/22 23:28 85 94 07/03/22 23:25 88 128/73 07/03/22 23:23 94 07/03/22 23:23 90 07/03/22 23:23 85 94 07/03/22 23:18 91 H 96 07/03/22 23:17 85 94 07/03/22 23:13 84 95 07/03/22 23:10 86 93 07/03/22 23:09 94 H 128/75 07/03/22 23:08 106 H 98 07/03/22 23:07 93 H 128/70 07/03/22 23:05 93 H 121/69 07/03/22 23:04 85 94 07/03/22 23:03 80 129/72 95 07/03/22 23:01 85 128/70 07/03/22 23:00 90 119/67 07/03/22 22:58 96 07/03/22 22:58 93 H 07/03/22 22:58 90 113/59 L 07/03/22 22:55 83 131/65 07/03/22 22:53 94 H 95 07/03/22 22:54 93 H 124/62 07/03/22 22:52 99 H 93 07/03/22 22:51 111 H 131/79 07/03/22 22:49 111 H 130/69 07/03/22 22:48 99 H 94 07/03/22 22:47 94 H 127/68 07/03/22 22:46 96 H 93 07/03/22 22:45 90 132/72 07/03/22 22:43 100 H 136/74 96 07/03/22 22:41 93 H 136/73 07/03/22 22:39 98 H 140/78 07/03/22 22:38 98 H 96 Coding Level of Care Code None Diagnoses Failure to progress in labor O62.2
[2022-07-04] MEDS ORDERED: LACTATED RINGER'S 1,000 ML IV SCH ×2 (10:45→12:48)
[2022-07-04] MEDS ORDERED: CITRIC ACID/SODIUM CITRATE 15 ML UDC ONE (10:45)
[2022-07-04] MEDS ORDERED: LIDOCAINE 2%/EPINEPHRINE 1:200,000 20 ML SDV ONE (11:15)
[2022-07-04] MEDS ORDERED: LACTATED RINGER'S 500 ML IV PRN (11:48)
[2022-07-04] MEDS ORDERED: MoRPHine SULFATE PF 1 MG/ML 10 ML AMP/VIAL EPI ONE (11:48)
[2022-07-04] MEDS ORDERED: NALOXONE HCL 0.08 MG in SYRINGE 1.8 ML IV PRN (11:48)
[2022-07-04] MEDS ORDERED: NALOXONE HCL 1 MG in SODIUM CHLORIDE 0.9% 1000ML 1,000 ML IV PRN (11:48)
[2022-07-04] MEDS ORDERED: ONDANSETRON INJ 2 MG/ML 2 ML VIAL IV PRN (11:48)
[2022-07-04] MEDS ORDERED: NALOXONE HCL 0.4 MG/1 ML VIAL/CARP IV PRN (11:48)
[2022-07-04] MEDS ORDERED: NALBUPHINE HCL INJ 10 MG/ML AMP IV PRN (11:48)
[2022-07-04] MEDS ORDERED: MoRPHine SULFATE 2 MG/ML CARP IV PRN (11:48)
[2022-07-04] MEDS ORDERED: PROMETHAZINE HCL 12.5 MG in SODIUM CHLORIDE 0.9% 50 ML IV PRN (11:48)
[2022-07-04] MEDS ORDERED: diphenhydrAMINE 50 MG/ML VIAL IV PRN (11:48)
[2022-07-04] MEDS ORDERED: ePHEDrine sulfate 50 MG/ML AMP IV PRN (11:48)
[2022-07-04] MEDS ORDERED: DC INTRASPINAL MORPHINE SCH (12:00)
[2022-07-04] MEDS ORDERED: NO NARCOTICS OR SEDATIVES SCH (12:00)
[2022-07-04] MEDS ORDERED: SODIUM CHLORIDE 0.9% 1000ML 1,000 ML IV SCH (12:00)
[2022-07-04] MEDS ORDERED: ONDANSETRON INJ 2 MG/ML 2 ML VIAL ONE (12:15)
[2022-07-04] MEDS ORDERED: OXYTOCIN 10 UNITS/ML 10ML VIAL ONE (12:15)
[2022-07-04] MEDS ORDERED: METOCLOPRAMIDE HCL INJ 5 MG/ML 2 ML VIAL ONE (12:15)
--- NOTE | 2022-07-04 12:29 | Operative Report ---
PG Post Operative Report Pre & Post Diagnosis Operation Date: 07/04/22 10:45 Pre-Op Diagnosis: SIUP @ 41w1d Induction of labor Failure to progress NRFHT Post-Op Diagnosis: Same, with delivery of 8lb9oz liveborn male I identified the patient and participated in the time-out.: Yes Procedure Operation Date: 07/04/22 10:45 Actual Procedures Primary Low Transverse Section for live male infant at 1146 Surgeon Nanci Edwards MD Nature Photographer Jean-Claude Stokes PGY2 Estimated Blood Loss 600 Findings Consistent with Post-Op Diagnosis Specimens Placenta, cord blood Anesthesia Type L&D Only Epidural Exists Complications none Disposition Accompanied Patient To Recovery: Yes Disposition: L&D Description of Procedure The patient was placed operating table in the supine position with a leftward tilt. She was prepped and draped in standard sterile fashion. The anesthetic was tested and found to be adequate. A time-out was held, identifying correct patient, procedure, positioning and preoperative antibiotics. There were no concerns. A Pfannenstiel skin incision was made with a knife and taken down to the underlying layer of fascia. The fascia was incised in the midline with the kn carmen and taken out laterally with scissors. The superior edge of the fascial incision was grasped, elevated and dissected off the underlying rectus both superiorly and inferiorly. The muscles were bluntly in the midline. The peritoneum was entered bluntly. The incision was then stretched. The bladder retractor was placed. The vesicouterine peritoneum was identified, entered with scissors and taken out laterally with scissors. The bladder flap was created digitally. A hysterotomy incision was created transversely in the lower uterine segment, final entry being accomplished in a blunt manner with the macerator operator's fingers. Clear amniotic fluid was encountered. The macerator operator's hand was used to elevate the head to the hysterotomy. The head was delivered using mild fundal pressure, and the shoulders and body followed without difficulty. The cord was clamped and cut and the was then handed off to the awaiting label fuser tender. Cord blood was obtained. The placenta was Manually extracted. The uterus was exteriorized and cleared of all clot and debris with moistened laparotomy sponges. The hysterotomy incision was repaired in two layers, the first in a running locked layer, the second in an imbricating layer. Shortly after starting the repair, the uterus was replaced in the abdomen as it was felt that this would provide better visualization of the lower edge of the hysterotomy. Due to the patient's habitus, the mons and lower abdominal wall tissues were creating some obstruction when the uterus was exteriorized. Most of the repair was completed with the uterus in-situ. The ovaries and tubes were seen to be normal bilaterally while the uterus was outside the abdomen. The gutters were cleared of clot and debris. A final inspection of the hysterotomy revealed good hemostasis. The rectus muscles were allowed to reapproximate naturally. The fascia was then reapproximated with 1 Vicryl in a running nonlocked manner. The fascia was examined and found to be free of defect following closure. The subcutaneous tissue was copiously irrigated and reapproximated with 0-chromic, then the skin edges were closed with 4-0 monocryl in a subcuticular fashion. A dermabond dressing was applied. The bah was found to be draining yellow urine at completion of the procedure, significantly improved from the pink urine seen pre-operatively. I attest to the content of the Intraoperative Record and any orders documented therein. Any exceptions are noted below. I attest to the content of the Intraoperative Record and any orders documented therein. Any exceptions are noted below. OB Procedure Charges 18161
[2022-07-04] MEDS ORDERED: DIPHTHERIA/TETANUS/PERTUSSIS 0.5 ML SYR/VIAL IM ONE (12:48)
[2022-07-04] MEDS ORDERED: SENNA 8.6 MG TAB PO PRN (12:48)
[2022-07-04] MEDS ORDERED: HYDROCORTISONE ACETATE 25 MG SUPP PR PRN (12:48)
[2022-07-04] MEDS ORDERED: MAGNESIUM HYDROXIDE SUSP 30 ML UDC PO PRN (12:48)
[2022-07-04] MEDS ORDERED: BENZOCAINE 20% AER SPR 82.5 GM CAN EXT PRN (12:48)
[2022-07-04] MEDS ORDERED: OXYTOCIN 30 UNITS in LACTATED RINGER'S 1,000 ML IV SCH (13:00)
[2022-07-04] MEDS: KETOROLAC 30 MG/ML VIAL IV PRN ×2 (14:05→20:58)
--- NOTE | 2022-07-04 15:30 | Anesthesiology Progress Note ---
Date of Service July 04, 2022 Anesthesia Post Procedure Vital Signs Vital Signs: Temp Pulse Resp BP Pulse Ox 07/04/22 15:00 16 98 07/04/22 12:30 36.8 C 07/03/22 19:26 94 H 18 123/68 07/04/22 15:28 93 H 99 07/04/22 15:25 80 115/60 07/04/22 15:23 89 98 07/04/22 15:18 97 H 98 07/04/22 15:13 96 H 99 07/04/22 15:08 98 H 99 07/04/22 15:03 87 97 07/04/22 14:58 94 H 98 07/04/22 14:53 91 H 98 07/04/22 14:52 91 H 126/67 07/04/22 14:48 103 H 98 07/04/22 14:43 96 H 98 07/04/22 14:42 100 H 108/66 07/04/22 14:40 90 94 07/04/22 14:38 95 H 95 07/04/22 14:33 89 95 07/04/22 14:31 91 H 111/56 L 07/04/22 14:28 91 H 96 07/04/22 14:27 91 H 94 07/04/22 14:23 94 H 96 07/04/22 14:21 91 H 116/59 L 07/04/22 14:18 91 H 95 07/04/22 14:13 92 H 96 07/04/22 14:11 95 H 127/58 L 07/04/22 14:08 96 H 97 07/04/22 14:03 92 H 96 07/04/22 14:02 93 H 123/71 07/04/22 13:58 89 97 07/04/22 13:53 95 H 97 07/04/22 13:48 93 H 96 07/04/22 13:43 93 H 95 07/04/22 13:42 101 H 115/72 07/04/22 13:38 97 H 95 07/04/22 13:33 98 H 96 07/04/22 13:31 100 H 107/60 07/04/22 13:28 99 H 96 07/04/22 13:23 96 H 97 07/04/22 13:21 96 H 106/71 07/04/22 13:18 96 H 96 07/04/22 13:13 92 H 97 07/04/22 13:11 94 H 119/59 L 07/04/22 13:08 95 H 96 07/04/22 13:03 93 H 97 07/04/22 13:02 95 H 111/53 L 07/04/22 12:58 96 H 96 07/04/22 12:53 98 07/04/22 12:53 90 07/04/22 12:53 107 H 197/136 H 07/04/22 12:48 92 H 98 07/04/22 12:43 92 H 100 07/04/22 12:38 97 H 99 07/04/22 12:33 93 H 99 07/04/22 12:28 93 H 99 07/04/22 12:29 92 H 124/64 07/04/22 11:17 90 98 07/04/22 11:12 77 97 07/04/22 11:10 86 143/89 H 07/04/22 11:05 16 07/04/22 11:05 36.6 C 16 07/04/22 11:07 86 97 07/04/22 11:02 90 97 07/04/22 10:57 97 H 97 07/04/22 10:55 85 141/85 H 07/04/22 10:52 87 96 07/04/22 10:47 100 H 97 07/04/22 10:42 99 H 99 07/04/22 10:40 94 H 143/84 H 07/04/22 10:37 91 H 95 07/04/22 10:32 101 H 98 07/04/22 10:27 94 H 97 07/04/22 10:25 95 H 134/75 07/04/22 10:22 76 95 07/04/22 10:17 76 97 07/04/22 10:12 81 95 07/04/22 10:11 81 135/73 07/04/22 10:07 86 95 07/04/22 10:04 86 146/72 H 07/04/22 10:02 86 94 07/04/22 10:01 87 93 07/04/22 09:57 106 H 98 07/04/22 09:58 94 H 156/100 H 07/04/22 09:56 84 144/94 H 92 07/04/22 09:52 91 H 97 07/04/22 09:50 87 92 07/04/22 09:47 86 95 07/04/22 09:44 83 93 07/04/22 09:42 97 07/04/22 09:42 92 H 07/04/22 09:42 88 171/97 H 07/04/22 09:37 96 H 97 07/04/22 09:32 94 H 98 07/04/22 09:30 82 92 07/04/22 09:27 84 95 07/04/22 09:24 16 07/04/22 09:24 36.7 C 16 07/04/22 09:25 82 152/85 H 07/04/22 09:22 90 96 07/04/22 09:21 89 93 07/04/22 09:17 97 H 97 07/04/22 09:12 89 98 07/04/22 09:13 90 144/90 H 07/04/22 09:07 90 97 07/04/22 09:02 83 96 07/04/22 08:57 73 96 07/04/22 08:55 83 140/72 07/04/22 08:52 78 96 07/04/22 08:47 73 96 07/04/22 08:42 79 96 07/04/22 08:41 75 134/69 07/04/22 08:39 84 94 07/04/22 08:37 78 96 07/04/22 08:32 87 97 07/04/22 08:27 104 H 99 07/04/22 08:26 96 H 138/78 07/04/22 08:22 96 H 96 07/04/22 08:17 85 97 07/04/22 08:12 85 96 07/04/22 08:11 90 145/74 H 07/04/22 08:09 93 H 94 07/04/22 08:07 78 96 07/04/22 08:02 96 07/04/22 08:02 75 07/04/22 08:02 78 94 07/04/22 07:57 81 97 07/04/22 07:56 75 134/63 07/04/22 07:52 81 96 07/04/22 07:50 78 94 07/04/22 07:47 78 96 07/04/22 07:42 77 95 07/04/22 07:40 77 133/65 07/04/22 07:37 90 97 07/04/22 07:32 92 H 96 07/04/22 07:26 102 H 150/65 H 07/04/22 07:23 85 97 07/04/22 07:18 102 H 97 07/04/22 07:15 78 153/73 H 07/04/22 07:10 18 07/04/22 07:10 36.7 C 18 07/04/22 07:13 99 H 95 07/04/22 07:11 93 07/04/22 07:11 80 07/04/22 07:11 86 186/103 H 07/04/22 07:08 87 95 07/04/22 07:04 71 91 07/04/22 07:03 92 H 98 07/04/22 06:58 105 H 97 07/04/22 06:57 78 159/98 H 07/04/22 06:53 83 92 07/04/22 06:48 116 H 97 07/04/22 06:47 91 H 94 07/04/22 06:43 95 H 97 07/04/22 06:42 80 183/93 H 07/04/22 06:38 99 H 97 07/04/22 06:39 86 94 07/04/22 06:33 97 H 97 07/04/22 06:34 92 H 92 07/04/22 06:28 83 95 07/04/22 06:27 94 07/04/22 06:27 87 07/04/22 06:27 80 145/89 H 07/04/22 06:23 96 H 96 07/04/22 06:22 115 H 92 07/04/22 06:17 18 07/04/22 06:17 18 07/04/22 06:18 83 95 07/04/22 06:16 89 91 07/04/22 06:13 100 H 96 07/04/22 06:11 96 H 159/96 H 07/04/22 06:08 94 H 96 07/04/22 06:03 92 H 95 07/04/22 05:58 80 96 07/04/22 05:55 81 153/76 H 07/04/22 05:53 85 97 07/04/22 05:48 88 95 07/04/22 05:43 87 96 07/04/22 05:41 86 159/84 H 07/04/22 05:38 92 H 96 07/04/22 05:31 18 07/04/22 05:31 36.6 C 18 07/04/22 05:33 85 96 07/04/22 05:28 104 H 98 07/04/22 05:26 100 H 162/90 H 07/04/22 05:23 123 H 99 07/04/22 05:18 81 94 07/04/22 05:17 82 94 07/04/22 05:13 77 96 07/04/22 05:12 83 94 07/04/22 05:10 86 147/89 H 07/04/22 05:08 78 96 07/04/22 05:03 80 96 07/04/22 04:58 76 96 07/04/22 04:57 82 159/91 H 07/04/22 04:53 79 96 07/04/22 04:52 82 94 07/04/22 04:48 87 95 07/04/22 04:43 81 95 07/04/22 04:42 85 138/79 07/04/22 04:38 78 95 07/04/22 04:33 97 H 94 07/04/22 04:28 77 96 07/04/22 04:27 83 159/75 H 07/04/22 04:23 91 H 96 07/04/22 04:18 90 97 07/04/22 04:13 85 146/77 H 97 07/04/22 04:12 101 H 154/105 H 07/04/22 04:08 102 H 98 07/04/22 04:03 85 95 07/04/22 03:58 111 H 97 07/04/22 03:56 114 H 198/104 H 07/04/22 03:53 104 H 97 07/04/22 03:48 82 95 07/04/22 03:43 85 96 07/04/22 03:41 95 H 134/88 07/04/22 03:38 110 H 97 07/04/22 03:37 104 H 94 07/04/22 03:33 92 H 95 07/04/22 03:28 98 H 95 07/04/22 03:26 84 136/77 94 07/04/22 03:23 89 95 07/04/22 03:22 79 156/73 H 07/04/22 03:18 91 H 94 07/04/22 03:19 101 H 94 07/04/22 03:10 20 07/04/22 03:10 37.1 C 20 07/04/22 03:13 90 96 07/04/22 03:11 104 H 182/87 H 07/04/22 03:08 101 H 96 07/04/22 03:03 100 H 96 07/04/22 02:58 90 07/04/22 02:58 94 H 07/04/22 02:58 84 92 07/04/22 02:55 96 H 171/83 H 07/04/22 02:53 102 H 95 07/04/22 02:51 80 90 07/04/22 02:48 104 H 98 07/04/22 02:43 98 H 95 07/04/22 02:42 89 07/04/22 02:42 87 179/89 H 90 07/04/22 02:38 100 H 98 07/04/22 02:34 89 91 07/04/22 02:33 93 H 96 07/04/22 02:28 97 H 95 07/04/22 02:29 84 92 07/04/22 02:26 83 185/87 H 07/04/22 02:24 85 93 07/04/22 02:23 18 07/04/22 02:23 37.1 C 93 H 18 96 07/04/22 02:18 94 H 97 07/04/22 02:19 89 92 07/04/22 02:13 97 H 95 07/04/22 02:10 93 H 146/87 H 07/04/22 02:08 102 H 97 07/04/22 02:07 91 H 92 07/04/22 02:03 89 96 07/04/22 02:01 86 93 07/04/22 01:58 92 H 94 07/04/22 01:55 91 H 152/86 H 94 07/04/22 01:53 99 H 96 07/04/22 01:48 86 95 07/04/22 01:43 90 96 07/04/22 01:40 96 H 150/90 H 07/04/22 01:38 109 H 97 07/04/22 01:33 92 H 96 07/04/22 01:28 89 97 07/04/22 01:27 83 130/69 07/04/22 01:23 95 H 97 07/04/22 01:18 87 97 07/04/22 01:15 82 94 07/04/22 01:13 84 96 07/04/22 01:10 83 127/72 07/04/22 01:08 83 96 07/04/22 01:03 88 96 07/04/22 00:58 78 97 07/04/22 00:57 86 132/78 07/04/22 00:53 88 97 07/04/22 00:48 83 96 07/04/22 00:43 96 H 97 07/04/22 00:40 93 H 131/78 07/04/22 00:38 102 H 98 07/04/22 00:33 89 97 07/04/22 00:28 37.7 C H 96 H 18 98 07/04/22 00:23 107 H 96 07/04/22 00:18 91 H 97 07/04/22 00:13 85 96 07/04/22 00:10 91 H 126/65 07/04/22 00:08 86 95 07/04/22 00:03 87 96 07/03/22 23:58 87 96 07/03/22 23:55 86 116/63 07/03/22 23:53 85 98 07/03/22 23:48 88 96 07/03/22 23:46 91 H 94 07/03/22 23:43 99 H 98 07/03/22 23:40 84 125/69 07/03/22 23:38 86 95 07/03/22 23:37 83 94 07/03/22 23:33 90 95 07/03/22 23:30 81 94 07/03/22 23:28 85 94 07/03/22 23:25 88 128/73 07/03/22 23:23 94 07/03/22 23:23 90 07/03/22 23:23 85 94 07/03/22 23:18 91 H 96 07/03/22 23:17 85 94 07/03/22 23:13 84 95 07/03/22 23:10 86 93 07/03/22 23:09 94 H 128/75 07/03/22 23:08 106 H 98 07/03/22 23:07 93 H 128/70 07/03/22 23:05 93 H 121/69 07/03/22 23:04 85 94 07/03/22 23:03 80 129/72 95 07/03/22 23:01 85 128/70 07/03/22 23:00 90 119/67 07/03/22 22:58 96 07/03/22 22:58 93 H 07/03/22 22:58 90 113/59 L 07/03/22 22:55 83 131/65 07/03/22 22:53 94 H 95 07/03/22 22:54 93 H 124/62 07/03/22 22:52 99 H 93 07/03/22 22:51 111 H 131/79 07/03/22 22:49 111 H 130/69 07/03/22 22:48 99 H 94 07/03/22 22:47 94 H 127/68 07/03/22 22:46 96 H 93 07/03/22 22:45 90 132/72 07/03/22 22:43 100 H 136/74 96 07/03/22 22:41 93 H 136/73 07/03/22 22:39 98 H 140/78 07/03/22 22:38 98 H 96 07/03/22 22:37 92 H 07/03/22 22:37 90 134/75 92 07/03/22 22:35 90 124/71 07/03/22 22:33 88 97 07/03/22 22:34 85 127/73 07/03/22 22:32 113 H 94 07/03/22 22:31 99 H 131/85 07/03/22 22:28 93 H 95 07/03/22 22:26 90 93 07/03/22 22:23 90 97 07/03/22 22:24 82 141/90 H 07/03/22 22:21 91 H 92 07/03/22 22:18 102 H 96 07/03/22 22:15 91 H 94 07/03/22 22:13 94 H 97 07/03/22 22:11 20 07/03/22 22:11 37.1 C 20 07/03/22 22:09 95 H 145/92 H 07/03/22 22:08 99 H 96 07/03/22 22:04 86 91 07/03/22 22:03 98 H 98 07/03/22 21:58 96 07/03/22 21:58 94 H 07/03/22 21:58 88 93 07/03/22 21:53 89 96 07/03/22 21:54 92 H 139/86 07/03/22 21:52 95 H 94 07/03/22 21:48 105 H 99 07/03/22 21:29 18 07/03/22 21:29 36.6 C 18 07/03/22 21:43 96 H 97 07/03/22 21:39 93 H 131/78 07/03/22 21:38 91 H 97 07/03/22 21:33 100 H 97 07/03/22 21:28 85 97 07/03/22 21:25 86 131/78 07/03/22 21:23 95 H 98 07/03/22 21:18 96 H 98 07/03/22 21:00 18 07/03/22 21:00 18 07/03/22 21:13 97 H 99 07/03/22 21:10 83 133/75 07/03/22 21:08 88 97 07/03/22 21:03 98 H 98 07/03/22 20:58 88 96 07/03/22 20:53 90 97 07/03/22 20:54 90 129/73 07/03/22 20:48 79 97 07/03/22 20:43 85 96 07/03/22 20:42 92 H 93 07/03/22 20:38 90 96 07/03/22 20:39 90 127/72 07/03/22 20:33 82 96 07/03/22 20:28 84 96 07/03/22 20:23 85 97 07/03/22 20:24 80 122/68 07/03/22 20:18 82 97 07/03/22 20:13 94 H 98 07/03/22 20:08 87 99 07/03/22 20:09 82 121/65 07/03/22 20:03 88 96 07/03/22 19:40 36.9 C 07/03/22 19:58 96 H 99 07/03/22 19:53 87 95 07/03/22 19:54 74 135/68 07/03/22 19:48 81 96 07/03/22 19:43 79 98 07/03/22 19:38 85 99 07/03/22 19:39 80 127/74 07/03/22 19:33 81 97 07/03/22 19:28 85 98 07/03/22 19:25 94 H 123/68 07/03/22 19:23 97 H 99 07/03/22 19:18 108 H 100 07/03/22 19:13 111 H 98 07/03/22 19:08 95 H 100 07/03/22 19:09 103 H 131/84 07/03/22 19:03 76 100 07/03/22 18:58 80 99 07/03/22 18:55 89 133/75 07/03/22 18:53 108 H 99 07/03/22 18:48 69 98 07/03/22 18:43 64 99 07/03/22 18:39 70 127/59 L 07/03/22 18:38 74 98 07/03/22 18:33 78 99 07/03/22 18:30 18 07/03/22 18:30 36.6 C 18 07/03/22 18:28 93 H 98 07/03/22 18:23 81 100 07/03/22 18:18 83 98 07/03/22 18:13 74 100 07/03/22 18:10 72 120/66 07/03/22 18:08 75 100 07/03/22 18:03 78 100 07/03/22 17:58 71 100 07/03/22 17:53 83 100 07/03/22 17:50 85 129/73 07/03/22 17:48 80 99 07/03/22 17:43 84 100 07/03/22 17:44 68 127/68 07/03/22 17:38 90 100 07/03/22 17:39 88 124/61 07/03/22 17:35 80 134/69 07/03/22 17:33 91 H 100 07/03/22 17:30 88 129/65 07/03/22 17:28 93 H 99 07/03/22 17:25 82 125/67 07/03/22 17:23 79 99 07/03/22 17:19 80 134/66 07/03/22 17:18 74 96 07/03/22 17:13 76 95 07/03/22 17:14 77 134/71 07/03/22 17:08 93 H 99 07/03/22 17:07 94 H 134/69 07/03/22 17:05 97 H 101/55 L 07/03/22 17:03 96 H 20 120/68 98 07/03/22 17:01 88 131/75 07/03/22 16:59 98 H 20 129/76 07/03/22 16:58 105 H 98 07/03/22 16:57 99 H 20 124/73 07/03/22 16:55 104 H 121/69 07/03/22 16:52 20 07/03/22 16:52 36.7 C 20 07/03/22 16:53 93 H 20 122/64 97 07/03/22 16:51 82 18 116/60 07/03/22 16:49 111 H 93 07/03/22 16:50 98 H 122/57 L 07/03/22 16:48 86 95 07/03/22 16:47 69 18 84/47 L 07/03/22 16:45 90 80/44 L 07/03/22 16:43 97 07/03/22 16:43 91 H 07/03/22 16:43 93 H 18 95/52 L 07/03/22 16:41 90 113/58 L 07/03/22 16:38 102 H 98 07/03/22 16:39 95 H 18 126/61 07/03/22 16:37 90 18 127/60 07/03/22 16:36 90 128/60 07/03/22 16:33 96 H 18 145/101 H 98 07/03/22 16:31 95 H 145/98 H 07/03/22 16:28 102 H 98 07/03/22 16:24 115 H 94 07/03/22 16:23 104 H 98 07/03/22 16:19 85 94 07/03/22 16:18 82 98 07/03/22 16:13 119 H 97 07/03/22 16:11 114 H 94 07/03/22 16:08 90 95 07/03/22 16:06 89 92 07/03/22 16:03 84 96 07/03/22 15:58 89 98 07/03/22 15:53 84 100 07/03/22 15:54 83 18 146/91 H Pain Intensity Right Abdomen: Pain Intensity: 0 Transfer of Care Handoff Completed per policy Notes Mental Status: alert / awake / arousable Patient Amnestic to Procedure: Yes Nausea / Vomiting: adequately controlled Pain: adequately controlled Airway Patency, RR, SpO2: stable & adequate BP & HR: stable & adequate Hydration State: stable & adequate Anesthetic Complications: no major complications apparent
[2022-07-04] MEDS: SIMETHICONE 80 MG CHEW PO SCH (20:58)
[2022-07-04] MEDS: DOCUSATE SODIUM 100 MG CAP PO SCH (20:58)
[2022-07-05] MEDS: KETOROLAC 30 MG/ML VIAL IV PRN (05:05)
[2022-07-05] MEDS ORDERED: oxyCODONE/ACETAMINOPHEN 5mg/325mg TAB PO PRN (05:52)
[2022-07-05] MEDS ORDERED: diphenhydrAMINE Capsule 25 MG CAP PO PRN (05:52)
[2022-07-05] MEDS ORDERED: diphenhydrAMINE 50 MG/ML VIAL IV PRN (05:52)
[2022-07-05] MEDS ORDERED: ONDANSETRON INJ 2 MG/ML 2 ML VIAL IV PRN (05:52)
[2022-07-05] MEDS ORDERED: PROMETHAZINE HCL 25 MG in SODIUM CHLORIDE 0.9% 50 ML IV PRN (05:52)
[2022-07-05] MEDS ORDERED: KETOROLAC 30 MG/ML VIAL IV PRN (05:52)
[2022-07-05] MEDS ORDERED: MEPERIDINE HCL 50 MG/ML CARP IV PRN (05:52)
[2022-07-05] MEDS ORDERED: CITRIC ACID/SODIUM CITRATE 15 ML UDC PO SCH (06:00)
--- NOTE | 2022-07-05 06:28 | Obstetrical Progress Note ---
Date of Service <Jean-Claude Farley - Last Filed: 07/05/22 06:28> July 05, 2022 Assessment & Plan <Jean-Claude Farley DO - Last Filed: 07/05/22 06:28> (1) S/P section: - Feels well today. Eating well, voiding well, ambulating well. - Pain well controlled with ibuprofen and Percocet. - Routine care -- OOB, ambulation, diet progression as tolerated - After discharge will have 6 week follow-up with Dr. Edwards. Day #:: 1 <Nanci Edwards MD - Last Filed: 07/05/22 07:09> (1) S/P section: Subjective <Jean-Claude Farley - Last Filed: 07/05/22 06:28> Ambulation: ambulating normally Voiding: no voiding problems Passing Gas:: Yes Diet Tolerance:: clear liquids Lochia:: Small Feeding Type:: breast feeding Current Pain Level(1-10): 2 Review of Systems Denies fever, chills, sweats Denies shortness of breath, difficulty breathing, chest pain, palpitations, chest pressure. Denies breast pain. Denies dysuria. Denies headache or changes in vision. Physical Exam <Jean-Claude Farley DO - Last Filed: 07/05/22 06:28> General: Alert, oriented. No acute distress. Cardiac: Regular rate and rhythm, no murmurs/rubs/gallops. Respiratory: Clear to auscultation bilaterally a/p, no wheezes/rales/rhonchi. No increased work of breathing. Symmetrical chest rise. No respiratory distress. Abdomen: Soft, nontender, nondistended. Bowel sounds present. Uterus: Uterine fundus firm, palpable 2 cm below umbilicus. Lower Extremities: No lower extremity edema or swelling. No deep calf pain. Shelia's negative bilaterally. Results & Data ([facility]) <Jean-Claude Farley - Last Filed: 07/05/22 06:28> Vital Signs (Past 12 Hours) Vital Signs Temp Pulse Pulse Resp BP BP Pulse Ox 07/05/22 05:30 18 97 07/05/22 04:15 16 94 07/05/22 03:27 37.1 C 89 16 102/69 97 12/07/22 03:26 16 94 07/05/22 02:30 16 95 07/05/22 01:00 16 98 07/05/22 00:20 16 94 07/04/22 23:00 37.1 C 89 16 102/69 98 07/04/22 23:00 16 98 07/04/22 22:00 16 96 07/04/22 20:35 36.8 C 99 H 18 115/74 97 07/04/22 21:15 16 98 07/04/22 20:35 16 97 07/04/22 19:30 16 93 07/04/22 18:30 36.6 C 87 16 102/62 96 O2 Del Method 07/05/22 05:30 07/05/22 04:15 07/05/22 03:27 Room Air 07/05/22 03:26 07/05/22 02:30 07/05/22 01:00 07/05/22 00:20 07/04/22 23:00 Room Air 07/04/22 23:00 07/04/22 22:00 07/04/22 20:35 Room Air 07/04/22 21:15 07/04/22 20:35 07/04/22 19:30 07/04/22 18:30 <Nanci Edwards MD - Last Filed: 07/05/22 07:09> Co-Signing Physician Notes Resident Physician Supervision Note: I interviewed and examined the patient. Discussed with Dr. Farley and agree with findings and plan as documented in the note. Any exceptions or clarifications are listed here: Patient was ambulating when we met this morning, and the sheets were off her bed to be changed, so there was nowhere to lay her down and check the incision - however the RN was in her room and voiced that she has seen the incision this morning and the dermabond is intact, incision is clean/dry, looks good. Patient is smiling, says she feels great, has visible significant edema in the dorsal aspect of her feet, and was just coming back from bathroom where she voided. Documented By: Nanci Edwards MD, FACOG Resident Activity Tracking <Jean-Claude Farley DO - Last Filed: 07/05/22 06:28> Resident Involvement: Resident Care Provided Care Provided: OB Delivery
[2022-07-05] MEDS: DOCUSATE SODIUM 100 MG CAP PO SCH ×2 (08:10→20:00)
[2022-07-05] MEDS: PRENATAL VITAMIN 1 TAB PO SCH (08:10)
[2022-07-05] MEDS: SIMETHICONE 80 MG CHEW PO SCH ×4 (08:10→20:00)
[2022-07-05] MEDS: FERROUS SULFATE 325 MG TAB PO SCH (08:10)
[2022-07-05 08:31] LABS: Hematocrit (blood only) 29.7 % (34.1-44.9); Mean Corpuscular Hemoglobin 33.2 pg (25.0-34.0); Mean Corpuscular Hgb Conc 33.7 g/dL (32.0-36.0); Mean Corpuscular Volume 98.7 fL (80.0-100.0); Platelet Count 138 K/uL (130-400); RDW Coefficient of Variation 12.7 % (11.5-14.5); RDW Standard Deviation 45.7 fL (36.4-46.3); Red Blood Count 3.01 M/uL (3.93-5.22); White Blood Count 9.46 K/ul (4.8-10.8)
[2022-07-05 08:39] LABS: Basophils # (auto) 0.02 K/uL (0-0.2); Basophils % (auto) 0.2 %; Eosinophils # (auto) 0.03 K/uL (0-0.50); Eosinophils % (auto) 0.3 %; Immature Granulocytes # (auto) 0.04 K/uL (0.00-0.02); Immature Granulocytes % (auto) 0.4 %; Lymphocytes # (auto) 0.82 K/uL (1.2-3.4); Lymphocytes % (auto) 8.7 %; Monocytes # (auto) 0.58 K/uL (0.24-0.82); Monocytes % (auto) 6.1 %; Neutrophils # (auto) 7.97 K/uL (1.4-6.5); Neutrophils % (auto) 84.3 %
[2022-07-05] MEDS: IBUPROFEN 600 MG TAB PO PRN ×2 (15:52→20:00)
[2022-07-05] MEDS ORDERED: bisacodyL 5 MG TABEC PO SCH (20:00)
[2022-07-06] MEDS: IBUPROFEN 600 MG TAB PO PRN ×2 (01:47→08:55)
--- NOTE | 2022-07-06 06:47 | Obstetrical Progress Note ---
Date of Service <Jean-Claude Farley DO - Last Filed: 07/06/22 07:45> July 06, 2022 Assessment & Plan <Jean-Claude Farley DO - Last Filed: 07/06/22 07:45> (1) S/P section: - Feels well today. Eating well, voiding well, ambulating well. - Pain well controlled with ibuprofen and Percocet. - Routine care -- OOB, ambulation, diet progression as tolerated - After discharge will have 6 week follow-up with Dr. Edwards. - Will D/C today. Day #:: 2 <Danica Blake, DO - Last Filed: 07/06/22 07:47> (1) S/P section: Subjective <Jean-Claude Farley DO - Last Filed: 07/06/22 07:45> Ambulation: ambulating normally Voiding: no voiding problems Passing Gas:: Yes Diet Tolerance:: regular diet Lochia:: Small Feeding Type:: breast feeding Current Pain Level(1-10): 2 Review of Systems Denies fever, chills, sweats Denies shortness of breath, difficulty breathing, chest pain, palpitations, chest pressure. Denies breast pain. Denies dysuria. Denies headache or changes in vision. Physical Exam <Jean-Claude Farley DO - Last Filed: 07/06/22 07:45> General: Alert, oriented. No acute distress. Cardiac: Regular rate and rhythm, no murmurs/rubs/gallops. Respiratory: Clear to auscultation bilaterally a/p, no wheezes/rales/rhonchi. No increased work of breathing. Symmetrical chest rise. No respiratory distress. Abdomen: Soft, nontender, nondistended. Bowel sounds present. Uterus: Uterine fundus firm, palpable 2 cm below umbilicus. Lower Extremities: No lower extremity edema or swelling. No deep calf pain. Shelia's negative bilaterally. Results & Data ([facility]) <Jean-Claude Farley DO - Last Filed: 07/06/22 07:45> Vital Signs (Past 12 Hours) Vital Signs Temp Pulse Resp BP Pulse Ox O2 Del Method 07/06/22 00:00 36.4 C L 93 H 18 129/81 97 Room Air 07/05/22 19:30 37.3 C <Danica Blake DO - Last Filed: 07/06/22 07:47> Co-Signing Physician Notes Resident Physician Supervision Note: I was present with Dr. Farley during the history and exam. I discussed the case with the resident and agree with the findings and plan as documented in the note. Any exceptions or clarifications are listed here: PPD#2 doing well, reviewed discharge instructions. DC home, followup in office 6w. Documented By: Danica Blake DO Resident Activity Tracking <Jean-Claude Farley DO - Last Filed: 07/06/22 07:45> Resident Involvement: Resident Care Provided Care Provided: OB Delivery
[2022-07-06 08:55] LABS: Hematocrit (blood only) 28.8 % (34.1-44.9); Hemoglobin 9.9 g/dl (12.0-16.0)
[2022-07-06] MEDS: PRENATAL VITAMIN 1 TAB PO SCH (08:55)
[2022-07-06] MEDS: SIMETHICONE 80 MG CHEW PO SCH ×2 (08:55→08:58)
[2022-07-06] MEDS: FERROUS SULFATE 325 MG TAB PO SCH (08:55)
[2022-07-06] MEDS: DOCUSATE SODIUM 100 MG CAP PO SCH (08:56)
[2022-07-06] MEDS ORDERED: bisacodyL 10 MG SUPP PR PRN (12:30)
--- NOTE | 2022-07-10 20:59 | Discharge Summary ---
Date of Service July 10, 2022 Admission HPI Per Admitting Provider 37yo at 41wks ega presents to L&D for planned induction. Had bah ripening balloon placed last pm, fell out at home. Had some bleeding, did not persist. No ctx. +FM. PNC c/b 1. AMA PNL rh pos, ri, gbs neg OBH: g1 GYNH: nl paps no stds Discharge Data Consultations 07/03/22 09:11 Consult Anesthesiology Stat 07/04/22 10:35 Consult Anesthesiology Stat Procedures Performed Operation Date: 07/04/22 10:45 Actual Procedures p Section in LD for live male at 1146 - Nanci Edwards MD Hospital Course (1) Failure to progress in labor: Patient underwent primary for FTP, see op report for details. Uncomplicated recovery and patient discharged to home with percocet for prn use and typical 6 week follow up in the office. Coding Level of Care Code None Diagnoses Failure to progress in labor O62.2
== END 2022-07-06 14:40 | disposition home or self-care (01) | DRG 788 ==
LOC: 4S1 07:41 → 4E2 07-04 16:45